=== PATIENT | female | born 1955 | race Caucasian/White ===

== ENCOUNTER 2020-09-20 18:51 | Emergency (ER) | payer OTHER ==
[~2020-09-20] VITALS: Ht 162.6 cm; Wt 70.3 kg
[2020-09-20 18:57] VITALS: BP 161/91
--- NOTE | 2020-09-20 18:59 | NUR ---
biba to bed 02
--- NOTE | 2020-09-20 19:15 | NUR ---
SWATI FROM HOME, PT. IS A 64 Y/O FEMALE THAT CAME INTO ED WITH C/O OF VARICROSE VEIN BURSTING IN RIGHT LEG. PT. STATES FOR A WEEK NOW, VARICOSE VEIN IN RIGHT LEG HAS BEEN RED AND HAS "STINGY SENSATION." PT. STATES THAT AT 6PM TODAY WHEN SHE TOOK A SHOWER, THE VEIN BURST. PT. RATES PAIN 0/10 ON THE PAIN SCALE AT THIS TIME. DENIES N/V/D; SKIN IS PINK/WARM/DRY; AAOX4 WITH EVEN AND STEADY GAIT; HR EVEN AND REGULAR; PT DENIES ANY FEVER, CP, SOB, OR COUGH AT THIS TIME; VSS; PATIENT POSITIONED FOR COMFORT; HOB ELEVATED; BEDRAILS UP X2; BED DOWN. ER MD MADE AWARE OF PT STATUS. PMH: ARTHRITIS, HTN, HYPERLIPIDEMIA ALLERGIES: NKA
[2020-09-20] MEDS ORDERED: LIDOCAINE MPF 1% 10 MG/ML VIAL INJ ONE (21:40)
[2020-09-20 22:19] VITALS: BP 155/85
--- NOTE | 2020-09-20 22:19 | NUR ---
Patient discharged with v/s stable. Written and verbal after care instructions given and explained. Patient verbalized understanding. Ambulatory with steady gait. All questions addressed prior to discharge. Advised to follow up with PMD.
== END 2020-09-20 22:19 | disposition home or self-care (01) ==
LOC: MED 18:51
DX: I83.91 Asymptomatic varicose veins of right lower extremity (principal); L29.9 Pruritus, unspecified; I10 Essential (primary) hypertension; E78.5 Hyperlipidemia, unspecified; Z98.890 Other specified postprocedural states
CPT/HCPCS: 99283; J2001